=== PATIENT | male | born 1950 | race Hispanic/Latino ===

== ENCOUNTER 2019-05-30 13:57 | Outpatient (CLI) | payer MEDICARE, MEDICAID | END 2019-05-30 13:58 | disposition home or self-care (01) | LOC: RAD 13:57 | PROVIDERS: ATTEND Family Medicine | DX: R13.10 Dysphagia, unspecified (principal); R63.3 Feeding difficulties ==

== ENCOUNTER 2019-06-04 15:28 | Inpatient (IN) | payer MEDICARE, MEDICAID ==
[2019-06-04] MEDS ORDERED: Iopamidol-370 76% 500 ML 1 ML ONE (16:05)
--- NOTE | 2019-06-04 16:27 | RAD ---
RADIOGRAPH CHEST 1 VIEW: DATE: 06/04/2019 TIME: 3:54 PM HISTORY: 68-year-old male quadriplegic with cerebral palsy. Suspected infection. COMPARISON: 11/04/2008 FINDINGS: Patient is rotated to the left. There is a new finding of dense opacification of the left lower lobe with silhouetting of the left hemidiaphragm. No cardiomegaly or pulmonary edema. Left upper lobe and right lung chavira are clear. No pneumothorax identified. IMPRESSION: Left lower lobe opacification.
[2019-06-04] MEDS ORDERED: EPINEPHrine 1 MG/ML AMP ONE (16:57)
[2019-06-04 17:16] LABS: Hemoglobin 11.7 g/dL (14.0-18.0); Mean Corpuscular HGB CONC 31.6 g/dL (32.0-36.0); Mean Corpuscular Hemoglobin 32.6 pg (27.0-31.0); RBC Distribution Width 15.2 % (11.5-14.5); Red Blood Cell (RBC) Count 3.57 mill/uL (4.70-6.10); White Blood Cell (WBC) Count 10.7 thou/uL (4.8-10.8)
[2019-06-04 17:36] LABS: ALT (SGPT) 10 U/L (8-55); AST (SGOT) 36 U/L (5-34); Albumin 1.8 g/dL (3.4-4.8); Alkaline Phosphatase 166 U/L (40-110); Anion Gap 10 mmol/L (10-20); BUN (Urea Nitrogen) 18 mg/dL (8.4-25.7); Bilirubin, Total 0.3 mg/dL (0.2-1.2); Calc. Creatinine Clearance 0 mL/min (70-130); Calcium 7.4 mg/dL (7.8-10.44); Carbon Dioxide 25 mmol/L (23-31); Chloride 112 mmol/L (98-107); Estimated GFR-MDRD Greater than 90; Globulin 3.7 g/dL (2.4-3.5); Glucose 96 mg/dL (80-115); Lipase 8 U/L (8-78); Magnesium 2.1 mg/dL (1.6-2.6); Potassium 3.9 mmol/L (3.5-5.1); Protein, Total 5.5 g/dL (5.8-8.1); Sodium 143 mmol/L (136-145)
[2019-06-04 17:45] LABS: Band 1 % (5-11); Eosinophils 4 % (0-10); Helmet Cells SLIGHT = 2-5 cells (100X) (0-1/hpf); Hypochromia SLIGHT = 6-15 cells (100X) (0-5/hpf); Lymphocytes 30 % (21-51); MDiff Complete? YES; Macrocytosis SLIGHT = 6-15 cells (100X) (0-5/hpf); Mean Platelet Volume 10.3 fL (7.4-10.4); Monocytes 28 % (0-10); Neutrophil 28 % (42-75); Platelet Clumps MODERATE; Platelet Morphology Comment PLT clumps seen-LOW; Polychromasia SLIGHT = 2-3 cells (100X) (0-2/hpf); Reactive Lymphocytes 9 % (0-10); Schistocytes SLIGHT = 2-5 cells (100X) (0-1/hpf)
--- NOTE | 2019-06-04 18:36 | CT ---
CT ABDOMEN WITH CONTRAST CT PELVIS WITH CONTRAST: DATE: 06/04/2019 HISTORY: 68-year-old male with abdominal distention COMPARISON: none TECHNIQUE: IV injection of iodinated contrast media: administered. Oral contrast media:Not administered FINDINGS: Bilateral L5 pars interarticularis defects causing minimal grade 1 anterolisthesis of L5 on S1. Lumba r vertebral body heights are maintained. Small bilateral pleural effusions. Pulmonary consolidation at left lower lobe with associated chronic architectural distortion consistent with round atelectasis. Adjacent calcified left posterior medial pleural plaque. No cardiomegaly. Moderate volume of free intraperitoneal fluid throughout the peritoneal cavity, with larger volume in lower abdominal cavity and pelvis, with free fluid herniating through left inguinal canal, without bowel loop. This free fluid in exit difficult to evaluate for colonic diverticulitis. There is diffus e mural thickening throughout the colon from cecum to rectum, suggestive of a diffuse colitis. Appendix is dilated to caliber of approximately 0.8 cm. Because it is surrounded by free fluid, it is difficult to evaluate for periappendiceal fat stranding. No hydronephrosis. No abdominal aortic aneurysm. No major pathology of spleen, pancreas, or adrenals. Multiple cysts in the liver, including large ones involving left and right lobes. No hepatomegaly. IMPRESSION: 1) moderate to large volume of ascites. 2) evidence for diffuse pancolitis. 3) thickened 8mm caliber appendix. Uncertain whether this represents acute appendicitis or is an exte nsion of the diffuse colitis. 4) Multiple hepatic cysts, including large ones. 5) small bilateral pleural effusions. 6) round atelectasis in left lower lobe: Evidence for previous asbestos exposure.
[2019-06-04] MEDS ORDERED: Piperacillin/Tazobactam 3.375 GM VIAL ONE (19:02)
[2019-06-04] MEDS ORDERED: Fentanyl 100 MCG/2 ML VIAL ONE (19:32)
[2019-06-04 19:48] LABS: Bilirubin Negative (Negative); Blood, Urine 1+ (Negative); Clarity Clear (Clear); Glucose, Urine (Dipstick) Normal (Negative); Leukocyte Negative Leu/uL (Negative); Nitrite Negative (Negative); Protein, Urine (Dipstick) 50 mg/dL (Neg-Trace); RBC/HPF 21-50 HPF (0-3); Squamous Epithelial None Seen HPF (0-3); Urobilinogen 3 mg/dL (Less than 2); WBC/HPF 0-3 HPF (0-3)
[2019-06-04 19:49] LABS: Bacteria/HPF 1+ HPF (None Seen)
[2019-06-04] MEDS ORDERED: Ondansetron PF 4 MG/2 ML Vial IVP PRN (20:42)
[2019-06-04] MEDS ORDERED: Acetaminophen 325 MG TAB PO PRN (20:42)
[2019-06-04] MEDS ORDERED: Senokot S 8.6-50 MG TAB PO PRN (20:42)
[2019-06-04] MEDS ORDERED: Guaifenesin DM 100-10/5 ML UDCUP PO PRN (20:42)
[2019-06-04] MEDS ORDERED: Acetaminophen 650 MG Suppository PR PRN (20:42)
[2019-06-04] MEDS ORDERED: Albumin 25% 25 GM/100 ML BOT IVPB SCH (20:45)
[2019-06-04 21:31] VITALS: BMI 20.8
--- NOTE | 2019-06-04 22:15 | HP ---
REASON FOR ADMISSION: New onset ascites, anuria from last 3 days. HISTORY OF PRESENTING ILLNESS: Please note majority of this history is obtained by talking to the patient's sister at bedside and ER physician as the patient is nonverbal from the age of 5 years. He has had history of meningitis and has had quadriplegia and has not been able to talk or walk since then. He is not oriented. This is his baseline. He has been at [facility] for last 14 years per family. He apparently had his abdomen bloated and has not passed any urine for 3 days, it was the reason [facility]. On arrival here, the patient has had a CAT scan done which shows findings of ascites, colonic diverticulitis, diffuse mural thickening throughout the colon from cecum to rectum suggestive of diffuse colitis. Appendix was dilated and it was surrounded by free fluid and was difficult to evaluate for periappendiceal fat stranding. No hydronephrosis. No abdominal aortic aneurysm was seen. Multiple cysts were seen in the liver. Chest x-ray done showed left lower lobe opacification. EKG done showed low-voltage QRS with sinus rhythm at 98 beats per minute. UA showed 21 to 50 rbc's with 1+ bacteria, but had 0-5 wbc's. Albumin is 1.8. Lipase is 8. AST 36, ALT 10, alkaline phosphatase 166, total bilirubin 0.3. Lactic acid 2.4, BUN 18, creatinine 0.8. Serum glucose 96. Electrolytes were stable. White count of 10, H and H 11 and 36, platelet count has not been reported. He has 28% neutrophils, 1% bands, 30% neutrophils, 28% monocytes. Platelets were moderately clumped. CLINICAL IMPRESSION AND PLAN: The patient will be admitted to medical floor for new onset ascites with distended abdomen and diffuse colitis. He has had a bowel movement as I was examining him, which was watery and brown in color. We will obtain stool studies. He will be on ciprofloxacin and Flagyl. The patient has had hypotension in the ER on arrival and was given a liter of fluid. We will give 2 more liters of IV fluid and continue him at 100 mL per hour. He will be on albumin 25% IV, a total of 4 doses q.6 hourly. We will continue his Depakote 1000 mg twice daily as before. The patient is do not attempt to resuscitate. This was discussed with the patient's sister and power of sports attorney, Ms. Molina, the number to reach her is [phone], that is her cell number and home #[phone]. We will obtain paracentesis with Interventional Radiology. No heroic measures to be done on him per family. We will try to ascertain the cause of his ascites. Acute hepatitis panel has been ordered. GI consultation with Dr. Haider Rojas who is environmental services floor tech will be obtained as well. Job ID: [id number]
[2019-06-04 22:21] LABS: INR-International Normal Ratio 1.2; PTT 37.5 SEC (22.9-36.1); Prothrombin Time 15.3 SEC (12.0-14.7)
[2019-06-04 22:32] LABS: Lactic Acid 2.2 mmol/L (0.5-2.2)
[2019-06-04] MEDS: Famotidine 20 MG TAB PO SCH (22:54)
[2019-06-04] MEDS: Divalproex Sodium 125 mg Sprinkle Capsule PO SCH (22:55)
[2019-06-04] MEDS: Sodium Chloride 0.9% 1,000 ML IV SCH (22:56)
[2019-06-05 00:43] LABS: HBCM Index 0.08 S/CO (0-0.79); HIV (1/2) Antibody/Antigen Non-Reactive (NonReactive); HIV 1/2 INDEX 0.13 S/CO (<1.00); Hep A IgM AB Non-Reactive (NonReactive); Hep A IgM S/CO 0.17 S/CO (0-0.79); Hep B Surf Ag Non-Reactive S/CO (NonReactive); Hep C IgG Ab Non-Reactive (NonReactive); Hep C Index 0.77 S/CO (0-0.79); Hepatitis B Core IgM Abs Non-Reactive (NonReactive)
[2019-06-05] MEDS: metroNIDAZOLE 500 MG in Premix Bag 1 BAG IVPB SCH ×4 (00:52→22:17)
[2019-06-05] MEDS: Albumin 25% 25 GM/100 ML BOT IVPB SCH ×4 (02:59→20:25)
[2019-06-05 05:50] LABS: Band 9 % (5-11); Eosinophils 1 % (0-10); Hemoglobin 10.4 g/dL (14.0-18.0); Lymphocytes 15 % (21-51); MDiff Complete? YES; Mean Corpuscular HGB CONC 33.5 g/dL (32.0-36.0); Mean Corpuscular Hemoglobin 34.9 pg (27.0-31.0); Mean Platelet Volume 9.2 fL (7.4-10.4); Metamyelocyte 1 % (0-0); Monocytes 22 % (0-10); Myelocyte 2 % (0-0); Neutrophil 49 % (42-75); Platelet Count 107 thou/uL (130-400); Platelet Morphology Comment Appears Decreased; RBC Distribution Width 15.3 % (11.5-14.5); Red Blood Cell (RBC) Count 2.98 mill/uL (4.70-6.10); Schistocytes SLIGHT = 2-5 cells (100X) (0-1/hpf); White Blood Cell (WBC) Count 12.6 thou/uL (4.8-10.8)
[2019-06-05 06:05] LABS: Anion Gap 11 mmol/L (10-20); BUN (Urea Nitrogen) 14 mg/dL (8.4-25.7); Calc. Creatinine Clearance 69 mL/min (70-130); Carbon Dioxide 22 mmol/L (23-31); Chloride 116 mmol/L (98-107); Estimated GFR-MDRD Greater than 90; Glucose 74 mg/dL (80-115); Potassium 3.5 mmol/L (3.5-5.1); Sodium 145 mmol/L (136-145)
[2019-06-05] MEDS: Enoxaparin Sodium 30 MG/0.3 ML SYRINGE SC SCH (07:03)
[2019-06-05 08:30] LABS: HBSAg Index 0.23 S/CO (0-0.99); HIV (1/2) Antibody/Antigen Non-Reactive (NonReactive); HIV 1/2 INDEX 0.13 S/CO (<1.00); Hep B Surf Ag Non-Reactive S/CO (NonReactive); Hep C IgG Ab Non-Reactive (NonReactive); Hep C Index 0.58 S/CO (0-0.79)
--- NOTE | 2019-06-05 09:55 | ULT ---
Ultrasound-guided paracentesis: HISTORY: New onset ascites FINDINGS: Informed consent obtained prior to the procedure. Preprocedural imaging demonstrated intrap eritoneal free fluid. An area was marked in the left lower quadrant in the midaxillary line, and then meticulously prepped and draped in normal sterile fashion and anesthetized with 1% buffered lidocaine. With direct sonographic guidance, a 19-gauge needle and 5 [place] [employer] catheter were advanced into the abdomen. After the return of fluid, the catheter was advanced, and the needle was removed. Approximately 2 L of clear straw-colored fluid was aspirated. The introducer sheath was removed, and hemostasis was achieved with direct pressure. A dry sterile dressing was placed. The patient tolerated the procedure well and without immediate complication. IMPRESSION: Technically successful ultrasound-guided paracentesis.
[2019-06-05 11:19] LABS: RBC Count-Automated (BF) 193 /cumm; WBC/Nucleated-Auto (BF) 67 uL
[2019-06-05 11:21] LABS: BF Color Yellow; Body Fluid Source Ascites Body Fluid; Clarity Hazy (Clear); Tube # EDTA
[2019-06-05] MEDS: Divalproex Sodium 125 mg Sprinkle Capsule PO SCH ×2 (11:34→20:26)
[2019-06-05] MEDS: Famotidine 20 MG TAB PO SCH ×2 (11:35→20:27)
[2019-06-05] MEDS: Sodium Chloride 0.9% 1,000 ML IV SCH ×2 (11:36→14:26)
[2019-06-05 11:37] LABS: BF Segmented Neutrophils 3 %; Cell Count Non Hematic 74 %; Lymphocytes 23 %
--- NOTE | 2019-06-05 13:03 | PDOC.HOSPP ---
- Subjective Encounter Date: 06/05/19 Encounter Time: 08:30 Subjective: awake, non verbal, not in distress sister at bedside - Objective Vital Signs & Weight: Vital Signs (12 hours) Temp Pulse Resp BP BP Pulse Ox 06/05/19 11:39 87/50 L 06/05/19 11:08 98.3 F 100 20 83/51 L 97 06/05/19 07:16 98.3 F 114 H 18 98/59 L 99 06/05/19 04:00 97.5 F L 110 H 20 117/75 99 Weight Weight 114 lb Result Diagrams: 06/05/19 04:59 06/05/19 04:59 Hospitalist ROS - Medication Medications: Active Medications Generic Name Dose Route Start Last Admin Trade Name Freq PRN Reason Stop Dose Admin Albumin Human 25 gm 06/05/19 03:00 06/05/19 10:18 Albumin 25% IVPB 06/05/19 21:01 25 gm 0300,0900,1500,2100 ZEV Administration Divalproex Sodium 1,000 mg 06/04/19 21:00 06/05/19 11:34 Depakote Sprinkle PO 1,000 mg BID ZEV Administration Enoxaparin Sodium 30 mg 06/05/19 09:00 06/05/19 07:03 Lovenox SC Not Given 0900 ZEV Famotidine 20 mg 06/04/19 21:00 06/05/19 11:35 Pepcid PO 20 mg BID ZEV Administration Ciprofloxacin/Dextrose 400 mg/ 200 mls @ 200 mls/hr 06/04/19 21:00 06/05/19 10:18 Device IVPB 200 mls Q12HR ZEV Administration Metronidazole 500 mg/ Device 100 mls @ 100 mls/hr 06/04/19 22:00 06/05/19 05: 30 IVPB 100 mls Q8HR ZEV Administration Sodium Chloride 1,000 mls @ 100 mls/hr 06/04/19 20:42 06/05/19 11:36 Normal Saline 0.9% IV 1,000 mls .Q10H ZEV Administration Pantoprazole Sodium 40 mg 06/05/19 09:00 06/05/19 12:15 Protonix PO Not Given DAILY ZEV - Exam General Appearance: awake alert Eye: PERRL, anicteric sclera ENT: no oropharyngeal lesions, dry oral mucosa Neck: supple, no JVD Heart: RRR, no murmur Respiratory: no wheezes, no rales Gastrointestinal: soft, normal bowel sounds, distended Extremities: no cyanosis, no edema Extremities - other findings: flexion contractures of all extremities Neurological: no new deficit Neurological - other findings: has quadriparesis Hosp A/P (1) Anuria Code(s): R34 - ANURIA AND OLIGURIA Status: Resolved (2) Ascites Code(s): R18.8 - OTHER ASCITES Status: Acute (3) Colitis Code(s): K52.9 - NONINFECTIVE GASTROENTERITIS AND COLITIS, UNSPECIFIED Status : Acute (4) Functional quadriplegia Code(s): R53.2 - FUNCTIONAL QUADRIPLEGIA Status: Chronic (5) Intellectual disability Code(s): F79 - UNSPECIFIED INTELLECTUAL DISABILITIES Status: Chronic - Plan has paracentesis done with removal of straw col fluid-2 lts await chemistry and w/u of ascitic fluid hepatitis panel was -ve on cipro and flagyl for signs of colitis, stool studies are pending has very low albumin levels due to poor nutrition await GI opinion oral liq diet, may adv to mech soft diet as tolerated gave full updates to sister at bedside prognosis guarded
[2019-06-05 13:47] LABS: ALT (SGPT) Less than 7 U/L (8-55); AST (SGOT) 19 U/L (5-34); Albumin 3.2 g/dL (3.4-4.8); Alkaline Phosphatase 101 U/L (40-110); Bilirubin, Direct 0.4 mg/dL (0.1-0.3); Bilirubin, Total 0.6 mg/dL (0.2-1.2); Protein, Total 5.5 g/dL (5.8-8.1)
--- NOTE | 2019-06-05 17:54 | CON ---
DATE OF CONSULTATION: 06/05/2019 CHIEF COMPLAINT: Abdominal distention. HISTORY OF PRESENT ILLNESS: Mr. Osborn is a 68-year-old man who has been nursing homebound for years. He had meningitis at age 5 and had brain injury associated with that and has required full care since then. He presented to the emergency room with progressive abdominal distention. CT scan was performed that showed ascites and he was admitted for further care regarding that. It was noted by CT scan to have ascites and a thickened colon and he did pass an episode of diarrhea when the admitting physician was examining him. He has apparently had no further diarrhea since then. His family believes subjectively that he has had abdominal pain associated with this, but he did undergo paracentesis this morning and has not been exhibiting significant signs of pain since then. He has had no nausea or vomiting. The patient's sister reports that he has had poor oral intake gradually over a period of time. He does have a pureed diet, but his albumin was noted to be very low on admission. The patient's mother previously at discuss with both of his sisters that they do not wish to pursue any kind of invasive treatment including gastrostomy tube placement. 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 FAMILY HISTORY: Noncontributory. SOCIAL HISTORY: No alcohol, tobacco, or drugs. ALLERGIES: NO KNOWN DRUG ALLERGIES. MEDICATIONS: Prior to admission: 1. Divalproex. 2. Ranitidine. 3. Aspirin. 4. Multivitamin. REVIEW OF SYSTEMS: Unobtainable as the patient is nonverbal. PHYSICAL EXAMINATION: VITAL SIGNS: Temperature 98.3, pulse 100, and blood pressure 87/50. GENERAL: He is in no acute distress. He is awake, but falls asleep when not stimulated. He is nonverbal and not communicative. HEENT: His eyes have no scleral icterus. Oropharynx is clear without lesions. No cervical or supraclavicular lymphadenopathy. LUNGS: Clear to auscultation bilaterally. HEART: Regular rate and rhythm without murmur. ABDOMEN: Soft, minimal distention, now is nontender. Bowel sounds are present. EXTREMITIES: No lower extremity or upper extremity edema. IMAGING: CT scan showed ascites and colon wall thickening. Cysts were noted in the liver. IMPRESSION: 1. Ascites. The patient does not have a known prior history of cirrhosis. His viral hepatitis screen was negative. His AST is greater than the ALT, which can be seen with cirrhosis. He has severe hypoalbuminemia. However, at this point, we will await the fluid studies including the fluid, albumin, and total protein to help differentiate etiology of the ascites. The patient has also reportedly had decreased urine output. However, his creatinine is within normal range. He has severe protein malnutrition as well. 2. Abnormal liver tests. Again, the AST is greater than the ALT and his albumin is low. He does not have other obvious signs of cirrhosis. The liver was not reported as nodular by imaging. His platelets, however, are low, which could be a site of portal hypertension. We will await the fluid studies to help differentiate. 3. Macrocytic anemia. 4. Protein-calorie malnutrition. The patient has albumin of 1.8. While he is admitted with ascites, I think his long-term pressing issue now will be nutritional. He does take an oral diet and has been evaluated by Speech Pathology is cleared for pureed diet with honey thick liquids. Given the underlying low protein and now with ascites, I doubt he will be able to maintain adequate nutritional intake halfway. He is likely going to see a progressive decline with his nutritional status overall. Family has discussed this previously between his sisters and his mother in the past and decided against invasive treatment including feeding tube placement. At this point, he is not a candidate for a gastrostomy tube given the ascites. Certainly, if he were to receive additional nutritional support, an NG tube would be preferable to IV nutrition, but either way we are avoiding these interventions based on the family's wishes. Palliative care evaluation may help at this point, so I again anticipate that he will have a slow gradual decline regarding this. 5. Abnormal CT scan of the abdomen showing thickening of the colon. He did reportedly have one episode of diarrhea yesterday. We will await stool studies that have been ordered including Clostridium difficile and culture and ova and parasites. RECOMMENDATIONS: 1. Await fluid studies including the fluid, albumin, and total protein. The cell count is negative for spontaneous bacterial peritonitis. 2. Stool studies. 3. The patient has been cleared for oral intake with pureed diet and honey thick liquids. Given the long-term plan for only oral feeding, I will ask for dietitian input regarding optimizing the supplements along with this diet. 4. Palliative care consultation may be helpful to me with family at this point, as I do think the patient will have progressive decline along with his poor nutritional status. Job ID: [id number]
[2019-06-06] MEDS: metroNIDAZOLE 500 MG in Premix Bag 1 BAG IVPB SCH (05:03)
[2019-06-06 05:29] LABS: Iron 31 ug/dL (65-175); Iron Binding Capacity, Total 69 mcg/dL (261-462)
[2019-06-06 05:55] LABS: Ferritin 854.57 ng/mL (22-322)
[2019-06-06] MEDS: Famotidine 20 MG TAB PO SCH ×2 (09:41→21:10)
[2019-06-06] MEDS: Enoxaparin Sodium 30 MG/0.3 ML SYRINGE SC SCH (09:42)
[2019-06-06] MEDS: Divalproex Sodium 125 mg Sprinkle Capsule PO SCH ×2 (12:49→21:10)
--- NOTE | 2019-06-06 13:44 | PDOC.HOSPP ---
- Subjective Encounter Date: 06/06/19 Encounter Time: 08:00 Subjective: not in distress, is resting on bed - Objective Vital Signs & Weight: Vital Signs (12 hours) Temp Pulse Resp BP BP Pulse Ox 06/06/19 08:00 96 06/06/19 07:57 98.4 F 84 16 86/49 L 96 06/06/19 05:11 88/60 L Weight Admit Weight 114 lb Weight 114 lb I&O: 06/05/19 06/06/19 06/07/19 06:59 06:59 06:59 Intake Total 450 Output Total 800 Balance -350 Result Diagrams: 06/05/19 04:59 06/05/19 04:59 Hospitalist ROS - Medication Medications: Active Medications Generic Name Dose Route Start Last Admin Trade Name Freq PRN Reason Stop Dose Admin Divalproex Sodium 1,000 mg 06/04/19 21:00 06/06/19 12:49 Depakote Sprinkle PO 1,000 mg BID ZEV Administration Enoxaparin Sodium 30 mg 06/05/19 09:00 06/06/19 09:42 Lovenox SC Not Given 0900 ZEV Famotidine 20 mg 06/04/19 21:00 06/06/19 09:41 Pepcid PO 20 mg BID ZEV Administration Ciprofloxacin/Dextrose 400 mg/ 200 mls @ 200 mls/hr 06/04/19 21:00 06/06/19 09:41 Device IVPB 200 mls Q12HR ZEV Administration Metronidazole 500 mg/ Device 100 mls @ 100 mls/hr 06/04/19 22:00 06/06/19 05: 03 IVPB 100 mls Q8HR ZEV Administration Pantoprazole Sodium 40 mg 06/05/19 09:00 06/06/19 09:43 Protonix PO Not Given DAILY ZEV - Exam Eye: PERRL, anicteric sclera ENT: no oropharyngeal lesions, dry oral mucosa Neck: supple, no JVD Heart: RRR, no murmur Respiratory: no wheezes, no rales Gastrointestinal: soft, non-tender, normal bowel sounds, distended Extremities: no cyanosis, no edema Neurological: no new deficit Neurological - other findings: quadriparesis with flexion contractures of extremities Hosp A/P (1) Ascites Code(s): R18.8 - OTHER ASCITES Status: Acute Qualifiers: Ascites type: other type Qualified Code(s): R18.8 - Other ascites (2) Anuria Code(s): R34 - ANURIA AND OLIGURIA Status: Resolved (3) Colitis Code(s): K52.9 - NONINFECTIVE GASTROENTERITIS AND COLITIS, UNSPECIFIED Status : Acute (4) Functional quadriplegia Code(s): R53.2 - FUNCTIONAL QUADRIPLEGIA Status: Chronic (5) Intellectual disability Code(s): F79 - UNSPECIFIED INTELLECTUAL DISABILITIES Status: Chronic - Plan had paracentesis done with removal of straw col fluid-2 lts SAAG is 2.2, ?usg liver to r/o Jameson harris, await GI opinion. hepatitis panel was -ve on cipro and flagyl for signs of colitis on CT, has not provided any stool sample yet has very low albumin levels due to poor nutrition mech soft diet as tolerated, ensure 1 can tid prognosis guarded dc plan in am if stable and cleared by GI, family wants hospice at [facility] to be set up on dc
[2019-06-06] MEDS: Dextrose 5% in Water 1,000 ML IV SCH (16:12)
[2019-06-06] MEDS: metroNIDAZOLE 500 MG TAB PO SCH ×2 (16:13→21:10)
[2019-06-06] MEDS: Ciprofloxacin 500 MG TAB PO SCH (21:10)
[2019-06-07] MEDS: Dextrose 5% in Water 1,000 ML IV SCH ×3 (00:58→21:15)
[2019-06-07] MEDS: Ciprofloxacin 500 MG TAB PO SCH ×2 (04:37→21:15)
[2019-06-07] MEDS ORDERED: Fentanyl 100 MCG/2 ML VIAL ONE (07:18)
[2019-06-07] MEDS: Enoxaparin Sodium 30 MG/0.3 ML SYRINGE SC SCH (08:30)
[2019-06-07] MEDS: Famotidine 20 MG TAB PO SCH ×2 (08:30→21:15)
[2019-06-07] MEDS: metroNIDAZOLE 500 MG TAB PO SCH ×3 (08:30→21:15)
[2019-06-07] MEDS: Divalproex Sodium 125 mg Sprinkle Capsule PO SCH ×2 (09:01→21:15)
--- NOTE | 2019-06-07 12:12 | PDOC.HOSPP ---
- Subjective Encounter Date: 06/07/19 Encounter Time: 07:00 Subjective: not in distress no nausea or vomiting - Objective Vital Signs & Weight: Vital Signs (12 hours) Temp Pulse Resp BP Pulse Ox 06/07/19 07:38 95 06/07/19 07:37 98.2 F 87 20 95/60 95 Weight Admit Weight 114 lb Weight 114 lb I&O: 06/06/19 06/07/19 06/08/19 06:59 06:59 06:59 Intake Total 450 Output Total 800 200 Balance -350 -200 Result Diagrams: 06/05/19 04:59 06/05/19 04:59 Hospitalist ROS - Medication Medications: Active Medications Generic Name Dose Route Start Last Admin Trade Name Freq PRN Reason Stop Dose Admin Ciprofloxacin 500 mg 06/06/19 20:00 06/07/19 04:37 Cipro PO 500 mg 0600,1999 ZEV Administration Divalproex Sodium 1,000 mg 06/04/19 21:00 06/07/19 09:01 Depakote Sprinkle PO 1,000 mg BID ZEV Administration Enoxaparin Sodium 30 mg 06/05/19 09:00 06/07/19 08:30 Lovenox SC 30 mg 0900 ZEV Administration Famotidine 20 mg 06/04/19 21:00 06/07/19 08:30 Pepcid PO 20 mg BID ZEV Administration Dextrose/Water 1,000 mls @ 100 mls/hr 06/06/19 14:00 06/07/19 11:15 D5w IV 1,000 mls .Q10H ZEV Administration Metronidazole 500 mg 06/06/19 15:00 06/07/19 08:30 Flagyl PO 500 mg TID ZEV Administration Pantoprazole Sodium 40 mg 06/05/19 09:00 06/07/19 08:30 Protonix PO 40 mg DAILY ZEV Administration - Exam Eye: PERRL, anicteric sclera ENT: no oropharyngeal lesions, moist mucosa Neck: supple, no JVD Heart: no murmur, no gallops Respiratory: no wheezes, no rales Gastrointestinal: soft, non-tender, normal bowel sounds, distended Extremities: no cyanosis, 1+ LE edema Neurological: cranial nerve grossly intact Neurological - other findings: quadriplegia with flexion contracture Hosp A/P (1) Ascites Code(s): R18.8 - OTHER ASCITES Status: Acute Qualifiers: Ascites type: other type Qualified Code(s): R18.8 - Other ascites (2) Anuria Code(s): R34 - ANURIA AND OLIGURIA Status: Resolved (3) Colitis Code(s): K52.9 - NONINFECTIVE GASTROENTERITIS AND COLITIS, UNSPECIFIED Status : Acute (4) Functional quadriplegia Code(s): R53.2 - FUNCTIONAL QUADRIPLEGIA Status: Chronic (5) Intellectual disability Code(s): F79 - UNSPECIFIED INTELLECTUAL DISABILITIES Status: Chronic (6) Severe protein-calorie malnutrition Code(s): E43 - UNSPECIFIED SEVERE PROTEIN-CALORIE MALNUTRITION Status: Acute (7) FTT (failure to thrive) in adult Status: Acute - Plan had paracentesis done with removal of straw col fluid-2 lts SAAG is 2.2, ?usg liver to r/o Jameson harris, await GI opinion. hepatitis panel was -ve on cipro and flagyl for signs of colitis on CT, stool studies are -ve for shiga toxin and campylobacter ag has very low albumin levels due to poor nutrition mech soft diet as tolerated, ensure 1 can tid prognosis guarded dc plan to snf, family wants hospice at snf to be set up on dc
[2019-06-08] MEDS: Ciprofloxacin 500 MG TAB PO SCH (03:53)
[2019-06-08] MEDS: Dextrose 5% in Water 1,000 ML IV SCH (04:16)
[2019-06-08] MEDS: Enoxaparin Sodium 30 MG/0.3 ML SYRINGE SC SCH (09:39)
[2019-06-08] MEDS: Famotidine 20 MG TAB PO SCH (09:39)
[2019-06-08] MEDS: metroNIDAZOLE 500 MG TAB PO SCH (09:39)
[2019-06-08] MEDS: Divalproex Sodium 125 mg Sprinkle Capsule PO SCH (09:40)
[2019-06-08 11:19] VITALS: BP 121/73; TEMP 97.5
--- NOTE | 2019-06-08 12:32 | PDOC.HOSPP ---
- Subjective Encounter Date: 06/08/19 Encounter Time: 09:15 non-verbal Subjective: Not in distress, sister at bedside - Objective Vital Signs & Weight: Vital Signs (12 hours) Temp Pulse Resp BP Pulse Ox 06/08/19 11:14 97.5 F L 100 20 121/73 94 L 06/08/19 09:30 95 06/08/19 08:00 97.7 F 96 20 97/60 95 Weight Admit Weight 114 lb Weight 114 lb I&O: 06/07/19 06/08/19 06/09/19 06:59 06:59 06:59 Intake Total 1150 400 Output Total 200 Balance -200 1150 400 Result Diagrams: 06/05/19 04:59 06/05/19 04:59 - Exam Eye: PERRL, anicteric sclera ENT: normocephalic atraumatic, dry oral mucosa Neck: supple, no JVD Heart: RRR, no murmur Respiratory: no wheezes, no rales, rhonchi Gastrointestinal: soft, normal bowel sounds, distended Extremities: no cyanosis, 1+ LE edema Neurological - other findings: quadriplegia with flexion contractures Hosp A/P (1) Ascites Code(s): R18.8 - OTHER ASCITES Status: Acute Qualifiers: Ascites type: other type Qualified Code(s): R18.8 - Other ascites (2) Anuria Code(s): R34 - ANURIA AND OLIGURIA Status: Resolved (3) Colitis Code(s): K52.9 - NONINFECTIVE GASTROENTERITIS AND COLITIS, UNSPECIFIED Status : Resolved (4) Functional quadriplegia Code(s): R53.2 - FUNCTIONAL QUADRIPLEGIA Status: Chronic (5) Intellectual disability Code(s): F79 - UNSPECIFIED INTELLECTUAL DISABILITIES Status: Chronic (6) Severe protein-calorie malnutrition Code(s): E43 - UNSPECIFIED SEVERE PROTEIN-CALORIE MALNUTRITION Status: Acute (7) FTT (failure to thrive) in adult Status: Acute - Plan had paracentesis done with removal of straw col fluid-2 lts SAAG is 2.2, ?usg liver to r/o Jameson harris, await GI opinion. hepatitis panel was -ve has very low albumin levels due to poor nutrition mech soft diet as tolerated, ensure 1 can tid prognosis guarded dc plan to snf, family wants hospice at snf to be set up on dc
--- NOTE | 2019-06-08 14:52 | PRG ---
DATE OF SERVICE: 06/08/2019 SUBJECTIVE: Mr. Osborn is nonverbal. He has had overall pretty poor oral intake and requires spoon feeding. OBJECTIVE: VITAL SIGNS: Temperature 97.5, pulse 100, blood pressure 121/73. GENERAL: He is in no acute distress. LUNGS: Clear to auscultation bilaterally. HEART: Regular rate and rhythm. ABDOMEN: Mildly distended with ascites. He does seem a bit tender to palpation. EXTREMITIES: No lower extremity edema. LABORATORY DATA: His fluid studies were negative for SBP. His serum albumin ascites gradient was 2.4, his total protein in the fluid was 2.8. These fluid studies do suggest a high-gradient ascites, suggestive of portal hypertension, however, the higher total protein indicates that a cardiac source would be indicated. Otherwise, I do not really think he has obvious signs of cardiac ascites, given that he has no other peripheral edema. On review of the CT scan with Radiology, he does not have distention of the inferior vena cava. The portal venous system was well opacified. IMPRESSION: 1. Ascites. Fluid studies suggest cardiac source. However, I would favor this more likely being a liver etiology as his hepatic veins and inferior vena cava were not distended at the time of the CT scan. He does not have peripheral edema otherwise. Still this could be a cardiac ascites or primary cirrhosis. The CT scan shows good opacification of the portal system with contrast. No obvious signs of hepatic vein thrombosis. 2. Severe protein malnutrition. I think this is more the overall challenge given the patient's poor oral intake and severe protein malnutrition with low albumin and little oral intake. His family does not wish to feed him invasively with any feeding tube. RECOMMENDATIONS: 1. Decision has been made to proceed with hospice care back at the skilled nursing. 2. Regarding the colon thickening noted by CT on initial presentation, he has not had diarrhea associated with that and it is more likely just secondary to the ascites. Job ID: [id number]
--- NOTE | 2019-06-08 18:08 | DIS ---
DATE OF ADMISSION: 06/04/2019 DATE OF DISCHARGE: 06/08/2019 DISCHARGE DISPOSITION: To [facility] with hospice. PRIMARY DISCHARGE DIAGNOSES: Ascites of unknown etiology, likely from severe hypoalbuminemia. Initial anuria on arrival, completely resolved. Generalized colitis, likely due to ascites with no clinical diarrhea. Functional quadriplegia, intellectual disability, severe protein calorie malnutrition, and failure to thrive. PROCEDURES DONE DURING HOSPITALIZATION: The patient has had CT of the abdomen and pelvis done, which showed findings suggestive of moderate to large volume ascites, evidence of diffuse alfaro colitis, multiple hepatic cysts, small bilateral pleural effusions. Chest x-ray done showed left lower lobe opacification. Paracentesis done on 06/05/2019 by Interventional Radiology with removal of 2 L of clear straw-colored fluid. Blood cultures x1, no growth. Second culture was contaminated. Stool for Shiga toxin and Campylobacter antigen was negative. Urine culture, no growth. H and H 10 and 31, platelet count 107 with 49% neutrophils, 9% bands, 15% lymphocytes, and MCV is 104. INR 1.2 and PTT 37. Albumin 3.2, BUN 14, and creatinine 0.7. Serum iron 31 and ferritin 854. AST 19, ALT 7, total bilirubin 0.6, alkaline phosphatase 101, total protein 5.5, vitamin B12 of 1164, and folic acid 16.5. Ascitic fluid white count was 67, 193 rbc's in it, had a total protein of 2.8 in the ascitic fluid with albumin of 0.8. Ascitic fluid LDH was 131. Acute hepatitis panel was negative. HIV 1 and 2 nonreactive. DISCHARGE MEDICATIONS: 1. Depakote 1000 mg p.o. twice daily. 2. Aspirin 81 mg p.o. daily. 3. Multivitamin one tablet once daily. 4. Ranitidine 150 mg p.o. daily. ALLERGIES: NO KNOWN DRUG ALLERGIES. INPATIENT CONSULT: Dr. Jama Ty for Gastroenterology. DISCHARGE PLAN: The patient to follow up with Dr. Bernard at the [facility]. BRIEF COURSE DURING HOSPITALIZATION: The patient initially got admitted on the , after he was sent over from [facility] for not able to pass urine for nearly 3 days. On examination, the patient had ascites. His CAT scan revealed findings of alfaro colitis. He was initially placed on IV antibiotics and a stat consultation with Dr. Jama Ty for Gastroenterology. The patient's albumin was 1.8 with history of quadriplegia, nonverbal, and intellectual disability from the age of 5 years. He also had contractures of all 4 extremities. The patient had very poor oral intake. He has had paracentesis done with Interventional Radiology with removal of nearly 2 L of straw-colored fluid. The cultures so far have been negative. The patient did not have any diarrhea. His antibiotics were discontinued for the last 24 hours. His overall prognosis is very poor due to underlying chronic issues. All through his hospital stay, his sister and power of managing attorney was given complete updates. She wanted her brother to be in hospice on discharge. She is clearly aware of were very poor prognosis due to very poor oral intake and the family did not want any artificial means of feeding him. A total of 35 minutes was spent on discharge plan. Please see a [id number] documentation for the day of discharge on [employer]. Job ID: [id number]
== END 2019-06-08 11:36 | disposition hospice, inpatient (51) | DRG 843 ==
LOC: ERS 15:28 → T4-A 21:00
PROVIDERS: ADMIT Internal Medicine; ATTEND Internal Medicine
PROC: 0W9G30Z Drainage of Peritoneal Cavity with Drainage Device, Percutaneous Approach (ICD-10-PCS; principal; 2019-06-05)
DX: E88.09 Other disorders of plasma-protein metabolism, not elsewhere classified (principal); R53.2 Functional quadriplegia; E43 Unspecified severe protein-calorie malnutrition; R18.8 Other ascites; J90 Pleural effusion, not elsewhere classified; B37.89 Other sites of candidiasis; Z66 Do not resuscitate; F79 Unspecified intellectual disabilities; K52.9 Noninfective gastroenteritis and colitis, unspecified; K76.89 Other specified diseases of liver; R34 Anuria and oliguria; Z79.82 Long term (current) use of aspirin; Z79.899 Other long term (current) drug therapy
CPT/HCPCS: 36415; 49083; 71045; 74177; 80048; 80053; 80074; 80076; 81003; 81015; 82042; 82607; 82728; 82746; 83540; 83550; 83605; 83615; 83690; 83735; 84157; 84484; 85025; 85060; 85610; 85730; 86803; 87040; 87045; 87046; 87086; 87149; 87340; 87389; 87427; 87449; 89051; 93005; J0171; J0744; J1650; J2543; J3010; P9047; Q9967